=== PATIENT | male | born 1960 | race African-American/Black ===

== ENCOUNTER 2022-10-12 10:30 | Emergency (ER) | payer SELFPAY ==
[2022-10-12] MEDS ORDERED: HYDROcodone/Acetaminophen 5/325 mg Tablet ONE (11:13)
[2022-10-12] MEDS ORDERED: Ibuprofen 800 MG TAB ONE (11:13)
== END 2022-10-12 12:28 | disposition home or self-care (01) ==
LOC: MADERS 10:30
DX: S63.601A Unspecified sprain of right thumb, initial encounter (principal); S60.221A Contusion of right hand, initial encounter; S63.501A Unspecified sprain of right wrist, initial encounter; F17.210 Nicotine dependence, cigarettes, uncomplicated; W23.0XXA Caught, crushed, jammed, or pinched between moving objects, initial encounter
CPT/HCPCS: 29125

== ENCOUNTER 2024-06-07 09:26 | Emergency (ER) | payer OTHER, SELFPAY ==
[2024-06-07] MEDS ORDERED: predniSONE 20 MG TAB ONE (10:51)
== END 2024-06-07 11:00 | disposition home or self-care (01) ==
LOC: MADERS 09:26
DX: R07.81 Pleurodynia (principal); F17.210 Nicotine dependence, cigarettes, uncomplicated
CPT/HCPCS: 71046; J7512